=== PATIENT | female | born 1930 | race Caucasian/White ===

== ENCOUNTER 2017-07-16 18:36 | Emergency (ER) | payer MEDICARE | END 2017-07-16 22:52 | disposition left against medical advice (07) | LOC: NED 22:52 | DX: H53.8 Other visual disturbances (principal); E07.9 Disorder of thyroid, unspecified; E78.00 Pure hypercholesterolemia, unspecified; I10 Essential (primary) hypertension | CPT/HCPCS: 99281 ==